=== PATIENT | female | born 1975 | race Caucasian/White ===

== ENCOUNTER 2018-06-20 08:42 | Emergency (ER) | payer OTHER ==
[2018-06-20 08:52] VITALS: BP 134/88; PULSE 111; TEMP 98; BMI 37.6
[2018-06-20] MEDS ORDERED: IBUPROFEN 600 MG TABLET (FP) PO ONE ×2 (09:25→09:36)
--- NOTE | 2018-06-20 09:26 | PDOC ---
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 States was not exquisitely painful at that time. Thursday cleaned her house and had an onset of pain that's progressively worsened since that time. This morning has difficulty lifting her right shoulder due to the pain which extends to her shoulder bone and the anterior aspect of her chest and clavicle. I symptoms or tingling to her hands, no neck pain, no fevers cough or any other URI symptoms. Occurred: reports: last week Severity: reports: moderate Pain Location: reports: chest Modifying Factors: improves with: None Loss of Consciousness: no loss of consciousness Associated Symptoms (Fall): denies symptoms Past History - Travel Traveled outside of the country in the last 30 days: No Close contact w/someone who was outside of country & ill: No - Past Medical History Allergies/Adverse Reactions: Allergies Allergy/AdvReac Type Severity Reaction Status Date / Time No Known Allergies Allergy Verified 06/20/18 08:49 Home Medications: Ambulatory Orders NK [No Known Home Medication] 06/20/18 COPD: No - Suicide/Smoking/Psychosocial Hx Smoking History: Current every day smoker Number of Cigarettes Smoked Daily: 5 Information on smoking cessation initiated: No Review of Systems - Review of Systems Able to Perform ROS?: Yes Is the patient limited Maltese proficient: Yes Constitutional: Yes: Symptoms Reported, See HPI, Malaise. No: Chills, Fever HEENTM: No: Symptoms Reported Respiratory: No: Symptoms reported Cardiac (ROS): No: Symptoms Reported Musculoskeletal: Yes: Symptoms Reported, See HPI, Joint Pain, Joint Swelling ( right shoulder, had cyst removed 2 years ago and has been well until recent injury) All Other Systems: Reviewed and Negative *Physical Exam - Vital Signs Last Vital Signs Temp Pulse Resp BP Pulse Ox 98 F 111 H 20 134/88 99 06/20/18 08:45 06/20/18 08:45 06/20/18 08:45 06/20/18 08:45 06/20/18 08:45 - Physical Exam General Appearance: Yes: Nourished, Appropriately Dressed, Apparent Distress, Mild Distress, Obese HEENT: positive: ILEANA, Normal ENT Inspection, TMs Normal, Pharynx Normal Neck: positive: Supple. negative: Tender Respiratory/Chest: positive: Lungs Clear Gastrointestinal/Abdominal: positive: Soft Musculoskeletal: positive: Normal Inspection. negative: CVA Tenderness Extremity: positive: Normal Capillary Refill, Normal Inspection. negative: Normal Range of Motion (limited range of motion secondary to tenderness at shoulder capsule. Abduction and forward flexion limited to proximally 90 and worsened with assistance. Has no crepitus or step-offs to clavicle or scapula, neurovascular intact to arm and hand.) Integumentary: positive: Normal Color, Dry, Warm Neurologic: positive: midwife II-XII NML intact, Fully Oriented, Alert, Normal Mood/ Affect, Normal Response, Motor Strength 5/5 Progress Note - Progress Note Progress Note: X-ray negative for fractures or dislocations, we'll treat with NSAIDs and have follow-up with orthopedist for further evaluation *DC/Admit/Observation/Transfer Diagnosis at time of Disposition: Right shoulder strain Qualifiers: Encounter type: initial encounter Qualified Code(s): S46.911A - Strain of unspecified muscle, fascia and tendon at shoulder and upper arm level, right arm , initial encounter - Discharge Dispostion Disposition: HOME Condition at time of disposition: Stable Decision to Admit order: No - Referrals Referrals: Lilliana Bowen [Primary Care Provider] - Pablo Cruz MD [Staff Physician] - - Patient Instructions Printed Discharge Instructions: DI for Shoulder Sprain Additional Instructions: Rest, ice to area on and off for 15 minutes 4-6 times a day Avoid heavy lifting or exercise until pain and swelling is resolved or until further directed Keep area highly elevated to reduce swelling Use splints/Dinesh wrap as directed Followup with orthopedist in one to 2 days if not improving, if significantly improved may wait one week for followup with orthopedist May use ibuprofen 2-200 mg tablets every 6 hours as needed for pain - Post Discharge Activity Forms/Work/School Notes: Back to Work
== END 2018-06-20 10:05 | disposition home or self-care (01) ==
LOC: JERFT 08:42 → JER 08:42 → JERFT 10:05
DX: S46.811A Strain of other muscles, fascia and tendons at shoulder and upper arm level, right arm, initial encounter (principal); X50.0XXA Overexertion from strenuous movement or load, initial encounter; Y93.E9 Activity, other interior property and clothing maintenance; Y92.038 Other place in apartment as the place of occurrence of the external cause; Y99.8 Other external cause status
CPT/HCPCS: 73030-TC-RT-FY; 99281-25